=== PATIENT | female | born 1995 | race Caucasian/White ===

== ENCOUNTER → 2020-05-27 | Outpatient (CLI) | payer BC | LOC: RAD 15:52 | DX: M54.5 Low back pain (principal) ==

== ENCOUNTER → 2021-03-09 | Outpatient (CLI) | payer BC ==
[2021-03-09 16:30] LABS: BASO # 0.06 (0.02-0.10); EOS % 1.6 % (1.0-5.0); HEMATOCRIT 44.5 % (37.0-47.0); HEMOGLOBIN 14.6 g/dL (12.5-16.0); MEAN CELL VOLUME 88 fl (78-100); MEAN CORPUSCULAR HEMOGLOBIN 29 pg (27-31); MEAN CORPUSCULAR HGB CONC 33 g/dL (33-37); MEAN PLATELET VOLUME 9.8 fl (7.4-10.4); MONO # 0.76 (0.20-0.80); NEU # 7.63 (1.40-6.50); PLATELET COUNT 339 K/mm3 (130-400); RED BLOOD COUNT 5.07 M/mm3 (4.10-5.30); RED CELL DISTRIBUTION WIDTH 11.9 % (11.5-14.5); WHITE BLOOD COUNT 12.2 K/mm3 (4.8-10.8)
[2021-03-09 16:37] LABS: ALBUMIN 4.6 g/dL (3.5-5.0); POTASSIUM 3.7 mmol/L (3.5-5.1); SODIUM 141 mmol/L (136-145)
[2021-03-09 16:38] LABS: CALCIUM 9.4 mg/dL (8.3-10.5)
[2021-03-09 16:40] LABS: GLUCOSE 75 mg/dL (65-105); TOTAL PROTEIN 7.6 g/dL (6.4-8.3)
[2021-03-09 16:41] LABS: CARBON DIOXIDE 26 mmol/L (22-29)
[2021-03-09 16:42] LABS: TOTAL BILIRUBIN 0.4 mg/dL (0.2-1.2)
[2021-03-09 16:45] LABS: AST-SGOT 40 U/L (5-34)
[2021-03-09 16:46] LABS: ALT/SGPT 85 U/L (0-55)
== END ==
LOC: LAB 16:20
PROVIDERS: Physician Assistant
DX: Z13.29 Encounter for screening for other suspected endocrine disorder (principal); E78.5 Hyperlipidemia, unspecified; R11.0 Nausea; N91.2 Amenorrhea, unspecified; Z83.3 Family history of diabetes mellitus

== ENCOUNTER → 2022-06-24 | Outpatient (CLI) | payer BC | LOC: LAB 17:26 | DX: N91.3 Primary oligomenorrhea (principal) ==

== ENCOUNTER → 2022-08-19 | Outpatient (CLI) | payer BC | LOC: LAB 06:08 | DX: N91.3 Primary oligomenorrhea (principal) ==

== ENCOUNTER → 2023-01-10 | Outpatient (CLI) | payer BC | LOC: LAB 17:07 | DX: N91.3 Primary oligomenorrhea (principal) ==

== ENCOUNTER → 2023-02-10 | Outpatient (CLI) | payer BC | LOC: LAB 16:20 | DX: N91.3 Primary oligomenorrhea (principal) ==

== ENCOUNTER → 2023-07-05 | Outpatient (CLI) | payer BC | LOC: LAB 17:31 | DX: E28.2 Polycystic ovarian syndrome (principal); E55.9 Vitamin D deficiency, unspecified; E88.81 Metabolic syndrome and other insulin resistance ==